=== PATIENT | male | born 1950 | race Caucasian/White ===

== ENCOUNTER 2017-12-28 11:58 | Emergency (ER) | payer MEDICARE | END 2017-12-28 12:49 | disposition home or self-care (01) | LOC: NAV ERS 11:58 | DX: S00.06XA Insect bite (nonvenomous) of scalp, initial encounter (principal); I10 Essential (primary) hypertension; E78.5 Hyperlipidemia, unspecified; Z79.899 Other long term (current) drug therapy; W57.XXXA Bitten or stung by nonvenomous insect and other nonvenomous arthropods, initial encounter | CPT/HCPCS: 99282 ==

== ENCOUNTER 2024-06-18 14:05 | Outpatient (CLI) | payer MEDICARE | END 2024-06-18 14:06 | disposition home or self-care (01) | LOC: NAV RAD 14:05 | PROVIDERS: ATTEND Nurse Practitioner Family | DX: M67.912 Unspecified disorder of synovium and tendon, left shoulder (principal) ==